=== PATIENT | male | born 1980 | race Caucasian/White ===

== ENCOUNTER → 2016-07-07 | Outpatient (CLI) | payer OTHER ==
[~2016-07-07] MED LIST: ACIP20TA19 PO; CEFA250 PO; METO5TAB PO
[2016-07-07 10:47] LABS: SEMEN WET PREP WBC 0-2 /HPF; WET PREP SPERM NONE SEEN /HPF (NONE SEEN)
== END ==
LOC: CLAB 09:52
PROVIDERS: ATTEND Urology
DX: Z30.2 Encounter for sterilization (principal)
CPT/HCPCS: 89321